=== PATIENT | female | born 1985 | race Two or more races ===

== ENCOUNTER 2022-04-15 14:00 | Inpatient (IN) | payer OTHER ==
[~2022-04-15] VITALS: Ht 167.6 cm; Wt 93.4 kg
[2022-04-16] MEDS ORDERED: PRENATAL + DHA1 EAC1 PO (09:41)
== END 2022-04-18 10:16 | disposition home or self-care (01) | DRG 807 ==
LOC: LDR 15:52 → OB/GYN 04-16 13:30
PROVIDERS: ADMIT Obstetrics & Gynecology; ATTEND Obstetrics & Gynecology
PROC: 3E0P7VZ Introduction of Hormone into Female Reproductive, Via Natural or Artificial Opening (ICD-10-PCS; 2022-04-15)
PROC: 4A1HXCZ Monitoring of Products of Conception, Cardiac Rate, External Approach (ICD-10-PCS; 2022-04-15)
PROC: 10E0XZZ Delivery of Products of Conception, External Approach (ICD-10-PCS; principal; 2022-04-16)
PROC: 0KQM0ZZ Repair Perineum Muscle, Open Approach (ICD-10-PCS; 2022-04-16)
PROC: 0W8NXZZ Division of Female Perineum, External Approach (ICD-10-PCS; 2022-04-16)
PROC: 3E033VJ Introduction of Other Hormone into Peripheral Vein, Percutaneous Approach (ICD-10-PCS; 2022-04-16)
DX: O70.1 Second degree perineal laceration during delivery (principal); Z37.0 Single live birth; Z3A.38 38 weeks gestation of pregnancy; Z20.822 Contact with and (suspected) exposure to COVID-19

== ENCOUNTER 2023-10-25 14:13 | Outpatient (CLI) | payer OTHER ==
[~2023-10-25 14:13] MED LIST: PRENATAL + DHA1 EAC1 PO
== END 2023-10-25 15:37 | disposition home or self-care (01) ==
LOC: NST 14:13
PROVIDERS: ATTEND Obstetrics & Gynecology Gynecology
DX: Z34.83 Encounter for supervision of other normal pregnancy, third trimester (principal)

== ENCOUNTER 2023-11-01 15:01 | Outpatient (CLI) | payer OTHER ==
[2023-11-01 15:20] VITALS: BP 130/75
== END 2023-11-01 15:30 | disposition home or self-care (01) ==
LOC: NST 15:01
PROVIDERS: ATTEND Obstetrics & Gynecology
DX: Z34.83 Encounter for supervision of other normal pregnancy, third trimester (principal)